=== PATIENT | male | born 1925 | race Caucasian/White ===

== ENCOUNTER 2017-01-05 15:30 | Inpatient (IN) | payer OTHER ==
[~2017-01-05] VITALS: Ht 162.6 cm; Wt 57.6 kg
[~2017-01-05 15:30] MED LIST: ATOR20TA64 PO; LISI-600 PO; MIRT30TA7 PO; OMEP20CA10 PO; TAMS0.4C96 PO
[2017-01-05 15:34] VITALS: BP_SYST 159
--- NOTE | 2017-01-05 16:25 | NUR ---
Patient to ER bed 7 to gown for evaluation. Side rails up. Report given to BENSON Bell.
--- NOTE | 2017-01-05 16:30 | NUR ---
ER at bedside examining patient.
--- NOTE | 2017-01-05 16:31 | NUR ---
Pt brought in by BLS transport in stable condition for medical clearance by family. Pt stated that he fell 1 wk ago and present w/ bump on left collar bone. Pt denies any pain. Pt stated that bump has since decreased in size, non-tender to touch. Pt present w/ large bruising to left side rib, no pain. -sob -chest pain. No acute distress noted at this time, will continue to monitor
--- NOTE | 2017-01-05 17:11 | NUR ---
ER at bedside updating patient and family
[2017-01-05] MEDS ORDERED: VITD2000 PO (17:28)
[2017-01-05 17:49] LABS: ANION GAP 4 (5-15); CALCIUM 8.6 mg/dL (8.4-11.0); CHLORIDE 103 mmol/L (98-107); CREATININE 0.93 mg/dL (0.55-1.30); GLUCOSE 99 mg/dL (70-99); POTASSIUM 4.1 mmol/L (3.5-5.1); SODIUM SERUM 134 mmol/L (136-145); UREA NITROGEN, BLOOD 17 mg/dL (8-21)
[2017-01-05 17:56] LABS: TOTAL BILIRUBIN 0.6 mg/dL (0.0-1.0)
[2017-01-05 17:57] LABS: ALANINE AMINOTRANSFERASE 15 U/L (12-78); ALBUMIN 3.4 g/dL (3.4-4.8); ASPARTATE AMINOTRANSFERASE 14 U/L (10-37); TOTAL PROTEIN, SERUM 6.7 g/dL (6.4-8.3)
[2017-01-05 18:14] LABS: BASOPHILS % (AUTO) 0.5 % (0.0-2.0); EOSINOPHILS # (AUTO) 0.4 K/uL (0.0-0.4); EOSINOPHILS % (AUTO) 6.3 % (0.0-4.0); HEMATOCRIT 36.2 % (36-54); HEMOGLOBIN 12.5 g/dL (14.0-18.0); LYMPHOCYTES # (AUTO) 0.9 K/uL (1.0-5.5); LYMPHOCYTES % (AUTO) 13.8 % (20.5-51.5); MEAN CORPUSCULAR HEMOGLOBIN 33 pg (27-31); MEAN CORPUSCULAR HGB CONC 35 % (32-36); MEAN CORPUSCULAR VOLUME 96 fL (79.0-98.0); MONOCYTES # (AUTO) 0.5 K/uL (0.0-1.0); MONOCYTES % (AUTO) 8.5 % (1.7-9.3); NEUTROPHILS # (AUTO) 4.6 K/uL (1.8-7.7); NEUTROPHILS % (AUTO) 70.9 % (40.0-70.0); PLATELET COUNT (AUTO) 276 K/uL (130-430); RED BLOOD CELL COUNT(AUTO) 3.79 MIL/uL (4.2-6.2); WHITE BLOOD COUNT (AUTO) 6.4 K/uL (4.8-10.8)
--- NOTE | 2017-01-05 18:21 | NUR ---
Ordered dinner tray for patient, family at bedside assisting patient to eat
[2017-01-05 19:31] VITALS: BP_SYST 142
--- NOTE | 2017-01-05 19:44 | NUR ---
Admission Note Received patient from ER with diagnosis of Vertebral Body Fracture and Clavicle Fracture . Initial Plan of Care discussed-patient verbalized understanding. Oriented to room, call light, pain management and safety.
--- NOTE | 2017-01-05 19:45 | NUR ---
Patient will be admitted to care of Dr. Saldaña. Admitted to tele unit. Will go to room 135. Belongings list completed. Summary report printed. Report will be given at bedside to BENSON Llanos.
--- NOTE | 2017-01-05 21:27 | NUR ---
Notes Report given by Viet ABDI nurse. Received patient lying in bed resting, denies of any pain, no acute distress noted, IV site checked intact and patent. Instructed patient to call nurse when getting out of bed, call light within reach. bed alarm on.
--- NOTE | 2017-01-05 21:40 | NUR ---
Dr Piotr Saldaña made rounds seen and examined patient.
--- NOTE | 2017-01-05 22:39 | NUR ---
Consult Called Reason For Consultation: Vertebral Body Fracture Person who was person notified: Cristopher Was consult called:y Consulting Physician: Vinh Dia MD Slipper Maker Specialty: Slipper Maker
--- NOTE | 2017-01-05 22:44 | NUR ---
Consult Called Reason For Consultation: Vertebral Body and Clavicle Fracture Person who was person notified: No Was consult called:Yes Consulting Physician:Joseph Santos MD, (Dr. Tanner driver education instructor) Dietary Assistant Specialty: Dietary Assistant
--- NOTE | 2017-01-06 00:25 | NUR ---
Rounds Patient resting quietly, denies of any pain, no acute distress noted. call light within reach.
[2017-01-06] MEDS ORDERED: ACETAMINOPHEN 325 MG TABLET PO PRN (00:45)
[2017-01-06 01:49] VITALS: BP_SYST 163
[2017-01-06 03:38] VITALS: BP_SYST 143
--- NOTE | 2017-01-06 04:29 | NUR ---
Rounds Patient awake, denies of any pain, no acute distress noted. call light within reach.
--- NOTE | 2017-01-06 06:32 | NUR ---
Closing notes Patient slept intermittently most of the night, denies of any pain, no acute distress noted. no other changes noted on patient current condition.
[2017-01-06 08:00] VITALS: BP_SYST 127
[2017-01-06 08:54] LABS: ALANINE AMINOTRANSFERASE 16 U/L (12-78); ALBUMIN 3.6 g/dL (3.4-4.8); ANION GAP 5 (5-15); ASPARTATE AMINOTRANSFERASE 16 U/L (10-37); CALCIUM 8.8 mg/dL (8.4-11.0); CHLORIDE 103 mmol/L (98-107); CREATININE 0.76 mg/dL (0.55-1.30); GLUCOSE 98 mg/dL (70-99); POTASSIUM 3.8 mmol/L (3.5-5.1); SODIUM SERUM 135 mmol/L (136-145); TOTAL BILIRUBIN 0.8 mg/dL (0.0-1.0); TOTAL PROTEIN, SERUM 7.1 g/dL (6.4-8.3); UREA NITROGEN, BLOOD 12 mg/dL (8-21)
--- NOTE | 2017-01-06 08:54 | NUR ---
Nutrition Update Brett Scale 18 noted. Pt admitted for vertebral body fracture and clavicle fracture. Diet: 2 gm Na BMI: 21.8 kg/m2 RD to follow per nutrition care standards.
[2017-01-06 09:18] LABS: BASOPHILS % (AUTO) 0.5 % (0.0-2.0); EOSINOPHILS # (AUTO) 0.6 K/uL (0.0-0.4); EOSINOPHILS % (AUTO) 8.7 % (0.0-4.0); HEMATOCRIT 40.2 % (36-54); HEMOGLOBIN 13.7 g/dL (14.0-18.0); LYMPHOCYTES # (AUTO) 0.9 K/uL (1.0-5.5); LYMPHOCYTES % (AUTO) 12.1 % (20.5-51.5); MEAN CORPUSCULAR HEMOGLOBIN 33 pg (27-31); MEAN CORPUSCULAR HGB CONC 34 % (32-36); MEAN CORPUSCULAR VOLUME 96 fL (79.0-98.0); MONOCYTES # (AUTO) 0.6 K/uL (0.0-1.0); MONOCYTES % (AUTO) 8.1 % (1.7-9.3); NEUTROPHILS # (AUTO) 5.3 K/uL (1.8-7.7); NEUTROPHILS % (AUTO) 70.6 % (40.0-70.0); PLATELET COUNT (AUTO) 307 K/uL (130-430); RED BLOOD CELL COUNT(AUTO) 4.21 MIL/uL (4.2-6.2); RED CELL DISTRIBUTION WIDTH 13.1 % (9.0-15.0); WHITE BLOOD COUNT (AUTO) 7.4 K/uL (4.8-10.8)
--- NOTE | 2017-01-06 09:34 | NUR ---
ASSISTED PT TO RESTROOM USING FWW PT SLOW AND UNSTEADY
--- NOTE | 2017-01-06 09:38 | NUR ---
SPOKE WITH DR RED Gave Dr. Red update/status on pts diagnosis... Dr. Red requested for social worker palliative care/corrections caseworker request authorization for pt to be seen by him... Left message with corrections caseworker regarding auth request from Dr. Red
--- NOTE | 2017-01-06 09:44 | NUR ---
PT UP WITH PHYSICAL THERAPY
[2017-01-06] MEDS: MIRTAZAPINE 15 MG TABLET PO SCH (10:21)
[2017-01-06] MEDS: TAMSULOSIN HCL 0.4 MG CAP PO SCH (10:22)
[2017-01-06] MEDS: ATORVASTATIN 20 MG TABLET PO SCH (10:22)
[2017-01-06] MEDS: OMEPRAZOLE 20 MG CAPSULE.DR (PriLOSEC) PO SCH (10:22)
[2017-01-06] MEDS: LISINOPRIL 20 MG TABLET PO SCH (10:22)
[2017-01-06] MEDS: CHOLECALCIFEROL (VITAMIN D3) 2,000 UNIT TABLET PO SCH (10:22)
--- NOTE | 2017-01-06 10:55 | NUR ---
Social Service Note: requested for FRANCIA to refer pt to be screened for [employer]. FRANCIA has contacted Oneal from [facility] to complete Medi-[employer] Screening. Oneal will give the niece a call to see if pt is eligible for [employer]. FRANCIA will remain available for support and will follow up as needed. Addendum: 01/06/17 at 1530 by Claudia Farah LCSW FRANCIA received call from Oneal who states that he has screened pt for [employer] and pt is currently above the property limit at this time.
--- NOTE | 2017-01-06 13:30 | NUR ---
PATIENT RESTING: Patient resting quietly. No acute distress noted. Vital signs within normal range.
--- NOTE | 2017-01-06 14:39 | NUR ---
PT USED URINAL WITH NO DIFFICULTY URINE SAMPLE OBTAINED AND SENT TO LAB FOR ANALYSIS
[2017-01-06 15:39] VITALS: BP_SYST 130
--- NOTE | 2017-01-06 16:07 | NUR ---
Discharge pLanning Contacted MAY Borges @ [facility] regarding plan of care. I told Katerina that Ortho Dr Tanner has refused to see patient unless he is specifically authorized by [employer] insurance. Katerina stated that they do not give individual auth to consults and that his fees would be covered under the auth provided for this hospital stay. patient has order for home health that has been faxed to MAY Borges as well. Still pending Neurosurgery Consult w/Dr Dia.
--- NOTE | 2017-01-06 16:42 | NUR ---
SLEEPING COMFORTABLY PT ASLEEP AT THIS TIME...RESPIRATIONS EVEN/UNLABORED...WILL CONT TO MONITOR
--- NOTE | 2017-01-06 18:42 | NUR ---
PT STILL ASLEEP COMFORTABLE...NO S/SX OF DISTRESS...WILL CONT TO MONITOR
[2017-01-06 19:45] VITALS: BP_SYST 132
--- NOTE | 2017-01-06 19:45 | NUR ---
INITIAL NOTE PT. RECEIVED IN BED, SLEEPING BUT EASILY AWAKENS. VSS, WITH NO S/S OF SOB OR DISTRESS. PT. DENIES PAIN AT THIS TIME. IV ACCESS TO RIGHT HAND, SALINE LOCK, WITH NO REDNESS OR SWELLING TO THE SITE. PLAN OF CARE HAS BEEN DISCUSSED, VERBALIZES UNDERSTANDING. PT. ENCOURAGED TO CALL FOR ASSISTANCE, VERBALIZES UNDERSTANDING. CLOSE TO NURSES STATION FOR FREQUENT OBSERVATION. WILL MONITOR FOR ANY CHANGES. SAFETY AND FALL PRECAUTIONS IN PLACE. CALL LIGHT IN REACH. BED ALARM ON.
--- NOTE | 2017-01-06 23:06 | NUR ---
ROUNDS LATE ENTRY DUE TO PT. CARE PT RESTING IN BED WITH EYES CLOSED. CHEST RISE AND FALL NOTED. NO S/S OF SOB OR DISTRESS. NO FACIAL GRIMACING FOR PAIN. WILL CONT TO MONITOR FOR CHANGES. SAFETY AND FALL PRECAUTIONS IN PLACE. CALL LIGHT IN REACH.
--- NOTE | 2017-01-07 00:14 | NUR ---
ROUNDS PT RESTING IN BED WITH EYES CLOSED. CHEST RISE AND FALL NOTED. NO S/S OF SOB OR DISTRESS. NO FACIAL GRIMACING FOR PAIN. WILL CONT TO MONITOR FOR CHANGES. SAFETY AND FALL PRECAUTIONS IN PLACE. CALL LIGHT IN REACH. BED ALARM ON
[2017-01-07 00:45] VITALS: BP_SYST 128
[2017-01-07 01:26] LABS: BILIRUBIN,URINE NEGATIVE (NEGATIVE); BLOOD, URINE NEGATIVE (NEGATIVE); CLARITY/URINE CLEAR (CLEAR); COLOR,URINE YELLOW (YELLOW); GLUCOSE,URINE NEGATIVE (NEGATIVE); KETONES,URINE NEGATIVE (NEGATIVE); LEUKOCYTE ESTERASE ,URINE NEGATIVE (NEGATIVE); NITRITE, URINE NEGATIVE (NEGATIVE); PH,URINE 6.5 (5.0-8.0); PROTEIN URINE NEGATIVE (NEGATIVE); UROBILINOGEN,URINE 0.2 (0.2-1.0)
[2017-01-07 04:00] VITALS: BP_SYST 133
--- NOTE | 2017-01-07 04:30 | NUR ---
ROUNDS PT. RESTING IN BED AT THIS TIME WITH EYES CLOSED. CHEST RISE AND FALL NOTED. NO S/S OF SOB OR DISTRESS. SCDS ARE ON BILATERALLY. WILL CONT. TO MONITOR FOR CHANGES. SAFETY AND FALL PRECAUTIONS IN PLACE. CALL LIGHT IN REACH, BED IN LOWEST LOCKED POSITION WITH THE ALARM ON.
--- NOTE | 2017-01-07 06:33 | NUR ---
CLOSING NOTE PT. RESTING IN BED AT THIS TIME. NO S/S OF SOB OR DISTRESS. ALL NECESSARY NEEDS WERE MET THROUGHOUT THE SHIFT. SAFETY AND FALL PRECAUTIONS WERE MAINTAINED. WILL ENDORSE CARE TO AM NURSE. CALL LIGHT IN REACH, BED ALARM ON.
[2017-01-07 08:00] VITALS: BP_SYST 121
--- NOTE | 2017-01-07 08:00 | NUR ---
RN ROUNDS PATIENT LYING ON BED ALERT ORIENTED, SLEEPY, PATIENT WAS ASSESSED AND VITAL SIGNS TAKEN AND ARE STABLE, PATIENT DENIES PAIN OR DISCOMFORT, WILL FOLLOW UP WITH MEDICATION AT 900
[2017-01-07] MEDS: OMEPRAZOLE 20 MG CAPSULE.DR (PriLOSEC) PO SCH (08:59)
[2017-01-07] MEDS: MIRTAZAPINE 15 MG TABLET PO SCH (08:59)
[2017-01-07] MEDS: CHOLECALCIFEROL (VITAMIN D3) 2,000 UNIT TABLET PO SCH (08:59)
[2017-01-07] MEDS: ATORVASTATIN 20 MG TABLET PO SCH (08:59)
[2017-01-07] MEDS: LISINOPRIL 20 MG TABLET PO SCH (09:00)
[2017-01-07] MEDS: TAMSULOSIN HCL 0.4 MG CAP PO SCH (09:00)
--- NOTE | 2017-01-07 09:50 | NUR ---
DISCHARGE PLANNING Spoke with MAY Borges at [facility] [phone] faxed home health as requested [phone]. Katerina stated patient has been on home health with [facility] [phone]. Katerina requested to be notified when patient will be discharged. Addendum: 01/07/17 at 1451 by Yaima MATA Ordered Radiology CD and gave to patient nurse Anjana to include with patient discharge paperwork. Addendum: 01/07/17 at 1507 by Yaima Rodas DP Called [facility] [phone] who confirmed fax referral was received and will have nursing staff scheduled to see patient 24-48hrs from patient discharge. Charge Nurse Moncada made aware.
--- NOTE | 2017-01-07 10:00 | NUR ---
RN ROUNDS PATIENT LYING ON BED FAMILY BY BED SIDE, DENIES PAIN OR DISCOMFORT. WILL FOLLOW UP
[2017-01-07 12:37] VITALS: BP_SYST 139
[2017-01-07 15:05] VITALS: BP_SYST 137
--- NOTE | 2017-01-07 16:15 | NUR ---
RN ROUNDS PATIENT WAS GIVEN HIS DISCHARGE INSTRUCTION. FELT DIZZY, VITAL SIGNS WERE MEASURED BLOOD PRESSURE 127/75 PULSE OF 75 RESPIRATION OF 18 , O2 SATURATION OF 96% ROOM AIR. PATIENT BLOOD SUGAR LEVEL WAS 131 MG/DL DR. MARINO WAS PRESENT AND HE AGREES TO SEND THE PATIENT AT THIS TIME. PATIENT LEFT IN HIS PRIVATE CAR WITH HIS FAMILY MEMBERS
--- NOTE | 2017-01-07 17:04 | NUR ---
PHYSICAL THERAPY CO-SIGN The Physical Therapy Progress Notes documented by Foreign Languages Professor have been reviewed. I CONCUR W/SENIOR TECHNICAL WRITER NOTE Reviewed/Co-Signed by: Malissa Mathur PT Documentation Done by: LACI ROGEL SENIOR TECHNICAL WRITER Addendum: 01/08/17 at 0838 by Malissa Mathur PT Amended: Links added.
== END 2017-01-07 16:20 | disposition home health service (06) | DRG 563 ==
LOC: SED 15:30 → STU 19:27
PROVIDERS: ADMIT Internal Medicine; ATTEND Internal Medicine
DX: S42.002A Fracture of unspecified part of left clavicle, initial encounter for closed fracture (principal); M48.50XA Collapsed vertebra, not elsewhere classified, site unspecified, initial encounter for fracture; I10 Essential (primary) hypertension; E11.9 Type 2 diabetes mellitus without complications; E78.5 Hyperlipidemia, unspecified; G20 Parkinson's disease; N40.0 Benign prostatic hyperplasia without lower urinary tract symptoms; W01.0XXA Fall on same level from slipping, tripping and stumbling without subsequent striking against object, initial encounter; Y93.89 Activity, other specified; Y92.89 Other specified places as the place of occurrence of the external cause; Y99.8 Other external cause status; Z79.899 Other long term (current) drug therapy
CPT/HCPCS: 36415; 71250-TC; 80053; 81003; 85025; 85610-TC; 85730-TC; 93005; 97110-GP; 97116-GP; 97530-GP; 99285